=== PATIENT | female | born 1945 | race Caucasian/White ===

== ENCOUNTER → 2018-11-15 12:31 | Outpatient (CLI) | payer MEDICARE, OTHER, SELFPAY ==
--- NOTE | 2018-11-15 | DI.ECHO.S_ITS ---
[facility] +---------+ : : [address] : [address] [place] : : : : [id number] : : : : Phone: [phone]+ Echocardiogram Report + + :Name: RASHAD SPARKS Study Date: 11/15/2018 Height: 67 in : :[facility] Weight: 140 lb : : Gender: Female BSA: 1.7 m2 : :: 1945 Age: 72 yrs BP: 172/98 mmHg: :Reason For Study: Atrial fibrillation - paroxysmal : :Ordering Physician: Santino : :Char Castillo Performed By: Lizet Joseph : + + Interpretation Summary The left ventricle is normal in size. The ejection fraction is estimated to be 60-65%. There are no focal wall motion abnormalities. The right ventricle is normal in size and function. The right ventricular systolic pressure is estimated to be at least 34 mmHg based on an estimated right atrial pressure of 3 mm Hg. No significant valvular pathology No prior echo for comparison. Procedure: A two-dimensional transthoracic echocardiogram with color flow and Doppler was performed. The study quality was technically adequate. There is no prior echocardiogram noted for this patient. The patient was in sinus bradycardia with heart rates between 46-58 bpm during the exam. Left Ventricle: Left ventricular wall thickness is at the upper limits of normal. The left ventricle is normal in size. A false chord is noted (normal variant). The ejection fraction is estimated to be 60-65%. There are no focal wall motion abnormalities. Diastolic parameters suggest probable normal left ventricular diastolic function and normal filling pressures. Right Ventricle: The right ventricle is normal in size and function. TAPSE 3.3. Atria: The left atrial size is normal. The right atrium is borderline dilated. There is no Doppler evidence for an interatrial shunt. Mitral Valve: The mitral valve leaflets appear borderline thickened, but open well. There is mild mitral annular calcification. There is mild mitral regurgitation. Aortic Valve: The aortic valve is trileaflet. The aortic valve opens well. There is no aortic valve stenosis. There is trace aortic regurgitation. Tricuspid Valve: The tricuspid valve leaflets are thin and pliable. There is mild tricuspid regurgitation. The right ventricular systolic pressure is estimated to be at least 34 mmHg based on an estimated right atrial pressure of 3 mm Hg. Pulmonic Valve: The pulmonic valve is normal in structure and function. There is a trace or physiologic amount of pulmonic regurgitation. Great Vessels: The aortic root is normal size. The ascending aorta is mildly enlarged. The aortic arch is normal in size. The IVC is of normal diameter and collapses greater than 50% with a sniff. This suggests a low right atrial pressure of 3 mm Hg. Pericardium/ Pleura There is no pericardial effusion. MMode/2D Measurements & Calculations LVIDd: 4.5 cm LVOT diam: 1.8 cm LVIDs: 2.4 cm Ao root diam: 3.0 cm FS: 46.9 % Aortic Jxn: 2.5 cm EPSS: 0.30 cm asc Aorta Diam: 3.5 cm IVSd: 1.00 cm Ao Arch Diam (Prox Trans): 2.6 cm LVPWd: 1.0 cm LV kelley. diameter/BSA (cm/m^2): 2.6 LV sys. diameter/BSA (cm/m^2): 1.4 LA A2 area: 20.7 cm2 RA long axis: 5.2 cm LA A4 area: 23.4 cm2 RA area: 21.2 cm2 LA length (vol): 5.3 cm RA vol: 73.5 ml LA vol: 77.8 ml RA : 42.3 ml/m2 LA vol index: 44.8 ml/m2 IVC diam: 1.5 cm RVD1 (basal): 3.7 cm RVD2 (mid): 2.7 cm TAPSE: 3.3 cm Doppler Measurements & Calculations Ao V2 max: 143.3 cm/sec LVOT Max Max: 133.3 cm/sec Ao V2 mean: 81.2 cm/sec LV V1 max P.1 mmHg Ao max P.2 mmHg LV V1 VTI: 28.3 cm Ao mean P.3 mmHg NANCY(I,D): 2.6 cm2 Ao V2 VTI: 27.0 cm NANCY(V,D): 2.3 cm2 sev ratio: 1.0 NANCY indexed to BSA (cm^2/m^2): 1.5 MV E max max: 93.3 cm/sec TR max max: 277.5 cm/sec MV A max max: 56.3 cm/sec TR max P.8 mmHg MV E/A: 1.7 PA V2 max: 79.1 cm/sec Med Peak E' Amx: 7.5 cm/sec PA V2 mean: 52.6 cm/sec E/E' med: 12.5 PA mean P.3 mmHg Lat Peak E' Max: 7.4 cm/sec PA Accel Time: 0.15 sec E/E' lat: 12.7 E/e' average: 12.6 MV dec time: 0.14 sec MV P1/2t: 43.7 msec MV /2t max max: 94.0 cm/sec SV(LVOT): 70.7 ml MVA(P1/2t): 5.0 cm2 Electronically signed by: Santino Pardo M.D. on Reading Physician:11/15/2018 06:33 PM
== END ==
PROVIDERS: Visit Provider Hospitalist
DX: I08.1 Rheumatic disorders of both mitral and tricuspid valves (principal); I48.0 Paroxysmal atrial fibrillation
CPT/HCPCS: 93306

== ENCOUNTER 2023-04-23 21:36 | Emergency (ER) | payer MEDICARE, OTHER, SELFPAY ==
[2023-04-23 21:40] VITALS: BP 191/93; PULSE 60; RESP 18; TEMP 36.8; O2SAT 97; BMI 22.8
[2023-04-23 22:08] LABS: Add Manual Diff / Slide Review NO; Basophils Absolute Auto 100 /uL (0-100); Basophils Percent Auto 0.5 % (0-2); Eosinophils Absolute Auto 200 /uL (0-450); Eosinophils Percent Auto 1.6 % (2-4); Hematocrit 41.8 % (36-46); Hemoglobin 14.2 g/dL (12.0-16.0); Lymphocytes Absolute Auto 1600 /uL (1100-4500); Mean Corpuscular Hemoglobin 30.9 PG (26-34); Mean Corpuscular Volume 90.9 fL (80-100); Monocytes Absolute Auto 800 /uL (0-900); Monocytes Percent Auto 7.4 % (3-14); Neutrophils Absolute Auto 7600 /uL (1500-7000); Neutrophils Percent Auto 74.5 % (50-75); Platelet Count 189 X10^3/uL (150-400); Red Cell Distribution Width 13.6 % (11.6-14.8); White Blood Cell Count 10.2 X10^3/uL (4.5-11.0)
[2023-04-23 22:11] LABS: Alanine Aminotransferase 19 IU/L (<35); Albumin 4.5 g/dL (3.5-5.0); Albumin Globulin Ratio 1.4 (1.0-2.8); Alkaline Phosphatase 79 U/L (38-126); Aspartate Aminotransferase 27 IU/L (14-36); BUN Creatinine Ratio 24.1 (6-22); Bilirubin Total 0.4 mg/dL (0.2-1.3); Blood Urea Nitrogen 14 mg/dL (7-17); Calcium 9.6 mg/dL (8.4-10.2); Carbon Dioxide 30 mmol/L (22-32); Chloride 100 mmol/L (98-107); Estimated Glomerular Filt Rate > 60 mL/min (>60); Globulin 3.2 g/dL (1.7-4.1); Glucose 110 mg/dL (80-110); HEMOLYSIS < 15 (0-50); Lipase 107 U/L (23-300); Potassium 3.9 mmol/L (3.4-5.1); Sodium 138 mmol/L (137-145); Total Protein 7.7 g/dL (6.3-8.2)
[2023-04-23 22:48] VITALS: PULSE 60; RESP 20
[2023-04-23 22:49] VITALS: BP 172/84; PULSE 60; RESP 23; O2SAT 97
[2023-04-23 23:00] VITALS: BP 161/87; PULSE 60; O2SAT 98
--- NOTE | 2023-04-23 23:29 | DI.CT.S_ITS ---
PROCEDURE: CT ABDOMEN PELVIS W CON INDICATIONS: abd pain, bloody stool TECHNIQUE: After the administration of IV contrast, axial sections were acquired from the lung bases to the pubic symphysis. Coronal and sagittal reformats were performed. For radiation dose reduction, the following was used: automated exposure control, adjustment of mA and/or kV according to patient size. COMPARISON: None. FINDINGS: Image quality: Excellent. Lung bases: There is mild atelectasis and scarring in the lung bases. Heart: Heart size is enlarged. ABDOMEN: Liver: No mass lesion. Gallbladder: Within normal limits without calcified gallstones. Biliary ducts: No biliary ductal dilatation. Pancreas: Unremarkable. Spleen: Normal in size. Adrenal Glands: No adrenal nodules. Kidneys and Ureters: No hydronephrosis. Stomach and Bowel: Stomach and small bowel loops are normal in caliber and wall thickness. No evidence of appendicitis. There is diffuse diverticulosis throughout the colon with associated diverticular and segmental colonic wall thickening in the sigmoid colon as well as pericolonic fat stranding consistent with acute diverticulitis. No discrete diverticular abscess or macroscopic free air. Peritoneum: No abnormal intraperitoneal fluid. No free air. Ventral Wall: No hernia. Abdominal Nodes: No retroperitoneal or mesenteric adenopathy by size criteria. Vessels: Aorta and inferior vena cava are normal in size. PELVIS: Pelvic Organs: Unremarkable. Bladder: Unremarkable. Pelvic Nodes: No enlarged lymph nodes. Miscellaneous: No inguinal hernias are seen. Bones: Visualized osseous structures demonstrate no suspicious focal lesions. IMPRESSION: 1. Diverticular and segmental colonic wall thickening in the sigmoid colon with pericolonic fat stranding consistent with diverticulitis. No diverticular abscess or macroscopic free air. Given the degree of colonic wall thickening, recommend follow-up colonoscopy to exclude associated mass if clinically indicated. Dictated by: Valdo Gaspar M.D. on 04/24/2023 at 0:28 Approved by: Valdo Gaspar M.D. on 04/24/2023 at 0:33
[2023-04-23 23:30] VITALS: BP 167/90; PULSE 60; RESP 20; O2SAT 98
--- NOTE | 2023-04-23 23:49 | ED_ITS ---
HPI - Abdominal Pain General Chief Complaint: Abdominal Pain Stated Complaint: abd pain, bloody stool Time Seen by Provider: 04/23/23 23:29 Source: patient Mode of arrival: Ambulatory Limitations: no limitations History of Present Illness HPI narrative: This is a 77-year-old female on Eliquis for atrial arrhythmias including atrial fibrillation, prior ablation and pacemaker. Patient states she has had suprapubic pain, some bloody stools that have been bright red over the last several days. No fevers. Patient states no back or flank pain. No upper abdominal pain. Patient states she is been a little constipated she is been having some bowel movements but less recently. No dysuria, urgency or frequency. No vaginal bleeding or discharge. Patient states she would similar symptoms in the past was diagnosed with diverticulitis. She was on antibiotics and had improvement. She states she is had prior hysterectomy, pacemaker. Allergic to Demerol and morphine states makes her hallucinate and vomit. She states she is tolerated fentanyl in the past without issue for procedures. Patient no tobacco, alcohol or illicit. Related Data Previous Rx's Medication Instructions Recorded amoxicillin 875 mg-potassium 1 tab PO BID #20 tabs 04/24/23 clavulanate 125 mg tablet hydrocodone 5 mg-acetaminophen 325 1 tab PO Q6H PRN pain #10 tabs 04/24/23 mg tablet Allergies Allergy/AdvReac Type Severity Reaction Status Date / Time meperidine [From DEMEROL] Allergy Unknown Verified 04/24/23 01:24 morphine AdvReac Hallucinati Verified 04/23/23 21:45 ng Review of Systems Review of Systems ROS Unobtainable: All systems reviewed & are unremarkable except as noted in HPI and below Patient History Surgical History Status post hernia repair Status post hysterectomy Status post myomectomy Social History Smoking Status: Never smoker Smoking Status: Never smoker Substance Use Type: does not use Exam Narrative Exam Narrative: GENERAL: Alert and oriented x three, female in [id number] distress. HEENT: Head normocephalic, atraumatic, EOMI, pupils reactive, face symmetric, moist mucous membranes NECK: Supple, full range of motion CARDIOVASCULAR: Regular rate and rhythm without murmurs, rubs or gallops. RESPIRATORY: Breath sounds equal bilaterally, no wheezes rales or rhonchi. ABDOMEN: Soft, positive for suprapubic pain. Normoactive bowel sounds all 4 quadrants. No guarding or rebound, rigidity, no mass : No CVA tenderness EXTREMITIES: Normal range of motion, no clubbing or edema. Neurovascularly intact NEUROLOGICAL: Cranial nerves II through XII grossly intact. Moving all extremities SKIN: Warm, dry, no petechiae, no rashes or lesions. Initial Vital Signs Initial Vital Signs: Vital Signs Temperature 98.3 F 04/23/23 21:40 Pulse Rate 60 04/23/23 21:40 Respiratory Rate 18 04/23/23 21:40 Blood Pressure 191/93 H 04/23/23 21:40 Pulse Oximetry 97 04/23/23 21:40 Oxygen Delivery Method Room Air 04/23/23 21:40 Course Orders Ordered: ED Orders 04/23/23 21:46 EKG-12 Lead Stat 04/23/23 21:50 Complete Blood Count AUTO DIFF Stat Comprehensive Metabolic Panel Stat Lipase Stat 04/23/23 23:29 CT abdomen pelvis w con Stat Discontinued Medications Hydrocodone Bitart/Acetaminophen (Hydrocodone/Acet 5/325 Prepack) 1 bottle MISC SEEINSTR ONE Stop: 04/24/23 00:58 Last Admin: 04/24/23 01:25 Dose: 1 bottle Documented By: [email or web address] Amoxicillin/Clavulanate Potassium (Amoxicillin/Clav 875/125 Mg) 1 tab PO NOW ONE Stop: 04/24/23 00:57 Last Admin: 04/24/23 01:25 Dose: 1 tab Documented By: [email or web address] Fentanyl (Fentanyl 100 Mcg/2 Ml Inj) 25 mcg IV NOW ONE Stop: 04/24/23 00:35 Last Admin: 04/24/23 01:26 Dose: 25 mcg Documented By: [email or web address] Ondansetron HCl (Ondansetron 4 Mg/2 Ml Inj) 4 mg IV NOW PRN PRN Reason: Nausea And Vomiting Vital Signs Vital signs: Vital Signs - 8 hr 04/23/23 21:40 04/23/23 22:48 04/23/23 22:49 Temperature 98.3 F Pulse Rate 60 60 Respiratory Rate 18 20 Blood Pressure 191/93 H 172/84 H Pulse Oximetry 97 Oxygen Delivery Method Room Air 04/23/23 22:49 04/23/23 23:00 04/23/23 23:00 Temperature Pulse Rate 60 60 Respiratory Rate 23 Blood Pressure 161/87 H Pulse Oximetry 97 98 Oxygen Delivery Method Room Air Room Air 04/23/23 23:30 04/23/23 23:30 04/24/23 01:46 Temperature Pulse Rate 60 60 Respiratory Rate 20 18 Blood Pressure 167/90 H 164/85 H Pulse Oximetry 98 98 Oxygen Delivery Method Room Air Room Air MDM - Abdominal Pain Lab Data 04/23/23 21:50 04/23/23 21:50 Labs: Lab Results 04/23/23 04/23/23 Range/Units 21:50 21:50 WBC 10.2 (4.5-11.0) X10^3/uL RBC 4.60 (4.0-5.2) X10^6/uL Hgb 14.2 (12.0-16.0) g/dL Hct 41.8 (36-46) % MCV 90.9 (80-100) fL MCH 30.9 (26-34) PG MCHC 34.0 (30-36) % RDW 13.6 (11.6-14.8) % Plt Count 189 (150-400) X10^3/uL Neut % (Auto) 74.5 (50-75) % Lymph % (Auto) 16.0 L (25-40) % Burke % (Auto) 7.4 (3-14) % Eos % (Auto) 1.6 L (2-4) % Baso % (Auto) 0.5 (0-2) % Neut # (Auto) 7600 H (7829-7056) /uL Lymph # (Auto) 1600 (7379-2679) /uL Burke # (Auto) 800 (0-900) /uL Eos # (Auto) 200 (0-450) /uL Baso # (Auto) 100 (0-100) /uL Sodium 138 (137-145) mmol/L Potassium 3.9 (3.4-5.1) mmol/L Chloride 100 (98-107) mmol/L Carbon Dioxide 30 (22-32) mmol/L BUN 14 (7-17) mg/dL Creatinine 0.58 (0.52-1.04) mg/dL Estimated GFR > 60 (>60) mL/min BUN/Creatinine Ratio 24.1 H (6-22) Glucose 110 (80-110) mg/dL Calcium 9.6 (8.4-10.2) mg/dL Total Bilirubin 0.4 (0.2-1.3) mg/dL AST 27 (14-36) IU/L ALT 19 (<35) IU/L Alkaline Phosphatase 79 (38-126) U/L Total Protein 7.7 (6.3-8.2) g/dL Albumin 4.5 (3.5-5.0) g/dL Globulin 3.2 (1.7-4.1) g/dL Albumin/Globulin Ratio 1.4 (1.0-2.8) Lipase 107 (23-300) U/L Point of care testing: Urine Dip Bedside Urine Bilirubin - Negative Bedside Urine Ketone - Negative Urine Specific [place] 1.005 Bedside Urine Occult Blood - Negative Bedside Urine pH 6.0 Bedside Urine Protein - Negative Bedside Urine Urobilinogen +/- 1mg Bedside Urine Nitrite - Negative Bedside Urine Leukocytes - Negative Esterase Imaging Data CT scan - abdomen/pelvis: Radiologist's Impression: [place] [address] CT Scan Report Signed Patient: Fatmata Carranza MR#: [id number] : 1945 Acct:[id number] Age/Sex: 77 / F Date of Service: 04/23/23 Loc: Accession Number: [id number] ?? Procedure: CT abdomen pelvis w con Ordering Provider: Aziza Valenzuela D.O. PROCEDURE:? CT ABDOMEN PELVIS W CON ? INDICATIONS:? abd pain, bloody stool ? TECHNIQUE:? After the administration of IV contrast, axial sections were acquired from the lung bases to the pubic symphysis.? Coronal and sagittal reformats were performed.? For radiation dose reduction, the following was used:? automated exposure control, adjustment of mA and/or kV according to patient size. ? COMPARISON:? None. ? FINDINGS:? Image quality:? Excellent.? ? Lung bases:? There is mild atelectasis and scarring in the lung bases.? ? Heart:? Heart size is enlarged. ? ? ABDOMEN: Liver:? No mass lesion. Gallbladder:? Within normal limits without calcified gallstones.? ? Biliary ducts:? No biliary ductal dilatation.? ? Pancreas:? Unremarkable.? ? Spleen:? Normal in size.? ? Adrenal Glands:? No adrenal nodules.? ? Kidneys and Ureters:? No hydronephrosis.? ? ? Stomach and Bowel:? Stomach and small bowel loops are normal in caliber and wall thickness.? No evidence of appendicitis.? There is diffuse diverticulosis throughout the colon with associated diverticular and segmental colonic wall thickening in the sigmoid colon as well as pericolonic fat stranding consistent with acute diverticulitis. ? No discrete diverticular abscess or macroscopic free air. Peritoneum:? No abnormal intraperitoneal fluid.? No free air.? ? Ventral Wall: ? No hernia.? Abdominal Nodes:? No retroperitoneal or mesenteric adenopathy by size criteria.? Vessels:? Aorta and inferior vena cava are normal in size.? ? PELVIS: Pelvic Organs:? Unremarkable.? ? Bladder:? Unremarkable.? ? Pelvic Nodes: No enlarged lymph nodes.? Miscellaneous: No inguinal hernias are seen. ? ? ? Bones:? Visualized osseous structures demonstrate no suspicious focal lesions. ? IMPRESSION:? ? 1. Diverticular and segmental colonic wall thickening in the sigmoid colon with pericolonic fat stranding consistent with diverticulitis.? No diverticular abscess or macroscopic free air.? Given the degree of colonic wall thickening, recommend follow-up colonoscopy to exclude associated mass if clinically indicated. ? Dictated by: Valdo Gaspar M.D. on 04/24/2023 at 0:28 ? ? Approved by: Valdo Gaspar M.D. on 04/24/2023 at 0:33?? ECG Data Attestation: I personally reviewed and interpreted this ECG as follows: Interpretation: Ventricularly paced rhythm rate of 60, QRS of 122 QTC of 466. MDM Narrative Medical decision making narrative: This is a 77-year-old female on Xarelto for AFib, atrial tachycardia isn't pacemaker with prior history of diverticulitis having similar symptoms starting this morning. Suprapubic pain, no rectal pain. Patient has had some bloody output bright red small amounts. No lightheadedness or passing out, patient did take 1 of her 's 7.5 mg Kennedy which was helpful earlier today. This is about 9:00 p.m.. Patient labs including CBC, CMP, LFTs with no significant changes. Negative point of care urine. Patient's CT does show changes consistent with diverticulitis no perforation or abscess. Discussed with patient findings today, discussed follow up with primary care to discuss colonoscopy. Patient is reluctant based on her age and risks versus benefits. She is an appointment on Thursday or Thursday with his physician and states she will review this with them. Plan for Augmentin twice daily, management for pain control. Patient and I discussed stool softeners she has Zofran at home. We did discuss return precautions. All questions answered. Discharge Plan Departure Patient Disposition: Home Clinical Impression: Diverticulitis Instructions: DI for Diverticulitis Activity Restrictions/Additional Instructions: Follow-up with your physician at your scheduled appointment. You do have colonic wall thickening in the sigmoid colon there is no abscess or signs of perforation, there is quite a bit of thickening and it is recommended for follow-up colonoscopy. Take antibiotics until completely gone. Can take pain medication 1-2 tablets every 6 hours as needed for pain. This medication can make you sleepy do not drive, perform hazardous activities or make any major decisions while taking it. This medication will make you constipated please take a stool softener once to twice daily until stools are soft and regular. [facility] [place] Please return for fevers, new or worsening abdominal back or flank pain, vomiting, increasingly large amounts of bleeding, large clots, lightheadedness or passing out, chest pain or shortness of breath or other new or concerning changes. Prescriptions: New amoxicillin-pot clavulanate 875-125 mg tablet 1 tab PO BID Qty: 20 0RF hydrocodone-acetaminophen 5-325 mg tablet 1 tab PO Q6H PRN (Reason: pain) Qty: 10 0RF Referrals: Esther Coy ARNP [Primary Care Provider] - Stand Alone Forms: Patient Portal/API
[2023-04-24] MEDS: AMOXICILLIN/CLAV 875/125 MG 1 TAB PO (01:25)
[2023-04-24] MEDS: HYDROCODONE/ACET 5/325 PREPACK 1 BOTTLE MISC (01:25)
[2023-04-24] MEDS: fentaNYL 100 MCG/2 ML INJ 25 MCG IV (01:26)
[2023-04-24 01:46] VITALS: BP 164/85; PULSE 60; RESP 18; O2SAT 98
== END 2023-04-24 01:52 | disposition home or self-care (01) ==
PROVIDERS: Emergency Provider Emergency Medicine; PCP Nurse Practitioner Family
DX: K57.92 Diverticulitis of intestine, part unspecified, without perforation or abscess without bleeding (principal); R10.9 Unspecified abdominal pain; I48.91 Unspecified atrial fibrillation; Z79.01 Long term (current) use of anticoagulants; Z95.0 Presence of cardiac pacemaker
CPT/HCPCS: 36415; 74177; 80053; 81003; 83690; 85025; 93005; 93010; 96374; 99284; J3010; Q9967

== ENCOUNTER 2023-10-05 17:01 | Emergency (ER) | payer MEDICARE, OTHER, SELFPAY ==
[2023-10-05 17:17] VITALS: BP 206/97; PULSE 69; RESP 17; TEMP 37.4; O2SAT 99; BMI 22.4
--- NOTE | 2023-10-05 17:34 | ED.ABDPAIN ---
HPI - Abdominal Pain <Qasim Payne PA-C - Last Filed: 10/05/23 17:59> General Chief Complaint: Abdominal Pain Stated Complaint: ABD PAIN/lower abd area Time Seen by Provider: 10/05/23 17:22 Source: patient and family Mode of arrival: Ambulatory History of Present Illness HPI narrative: This is a 77-year-old female presents emergency department due to lower abdominal pain onset this morning. Denies any fevers, nausea, vomiting, dysuria, or any other concerning signs or symptoms. History of diverticulitis twice in the past and this feels very similar. Related Data Home Medications Medication Instructions Recorded Confirmed amlodipine 5 mg tablet 5 mg PO DAILY 10/05/23 10/05/23 rivaroxaban 2.5 mg tablet (Xarelto) 5 mg PO DAILY 10/05/23 10/05/23 Previous Rx's Medication Instructions Recorded oxycodone-acetaminophen 5 mg-325 1 tab PO Q8H PRN pain #14 tabs 10/05/23 mg tablet Allergies Allergy/AdvReac Type Severity Reaction Status Date / Time meperidine [From DEMEROL] Allergy Unknown Verified 10/05/23 17:22 morphine AdvReac Hallucinati Verified 10/05/23 17:22 ng Review of Systems <SHAMA Tobar Last Filed: 10/05/23 17:59> Review of Systems Narrative: GENERAL: Denies chills, fatigue, malaise, fever, sweats. HEENT: Denies sinus pain, ear pain, sore throat, difficulty swallowing, dizziness. RESPIRATORY: Denies dyspnea, cough, wheezing, hemoptysis, sputum. CARDIOVASCULAR: Denies chest pain, palpitations, orthopnea, edema, GASTROINTESTINAL: reports lower abdominal pain, Denies nausea, vomiting, diarrhea, constipation, melena. : Denies dysuria, frequency, incontinence, hematuria, urinary retention. MUSCULOSKELETAL: denies weakness, joint pain, or bony pain SKIN: Denies rash, skin lesions, or other NEUROLOGIC: Denies weakness, headache, numbness, change in speech, confusion, seizures, incoordination. PSYCHIATRIC: No concerning psychosocial issues. 12 point review of systems is negative except for those stated above Patient History <Qasim Payne PA-C - Last Filed: 10/05/23 17:59> Surgical History Status post hernia repair Status post hysterectomy Status post myomectomy Social History Smoking Status: Never smoker Smoking Status: Never smoker Substance Use Type: does not use Exam <Qasim Payne PA-C - Last Filed: 10/05/23 17:59> Narrative Exam Narrative: GENERAL: Well-developed patient, in mild distress. HEAD: Atraumatic. Normocephalic. EYES: Pupils equal round and reactive. Extraocular motions intact. No scleral icterus. No injection or drainage. ENT: Nose without bleeding, purulent drainage. Throat without erythema, tonsillar hypertrophy or exudate. Airway patent. NECK: Trachea midline. Non tender CARDIOVASCULAR: Regular rate and rhythm without murmurs, gallops, or rubs. RESPIRATORY: Clear to auscultation. Breath sounds equal bilaterally. No wheezes, rales, or rhonchi. GASTROINTESTINAL: Mild tenderness to palpation suprapubic area EXTREMITIES: No edema or joint tenderness. BACK: Nontender without deformity or crepitance. No flank tenderness. NEURO: AOx3. SKIN: No rash or erythema of visible areas Initial Vital Signs Initial Vital Signs: Vital Signs Temperature 99.4 F 10/05/23 17:17 Pulse Rate 69 10/05/23 17:17 Respiratory Rate 17 10/05/23 17:17 Blood Pressure 206/97 H 10/05/23 17:17 Pulse Oximetry 99 10/05/23 17:17 Oxygen Delivery Method Room Air 10/05/23 17:17 <Konstantin Villanueva MD - Last Filed: 10/19/23 12:57> Initial Vital Signs Initial Vital Signs: Vital Signs Temperature 99.4 F 10/05/23 17:17 Pulse Rate 69 10/05/23 17:17 Respiratory Rate 17 10/05/23 17:17 Blood Pressure 206/97 H 10/05/23 17:17 Pulse Oximetry 99 10/05/23 17:17 Oxygen Delivery Method Room Air 10/05/23 17:17 Course <Qasim Payne PA-C - Last Filed: 10/05/23 17:59> Vital Signs Vital signs: Vital Signs - 8 hr 10/05/23 17:17 10/05/23 17:38 Temperature 99.4 F Pulse Rate 69 60 Respiratory Rate 17 18 Blood Pressure 206/97 H 152/72 H Pulse Oximetry 99 98 Oxygen Delivery Method Room Air Room Air <Konstantin Villanueva MD - Last Filed: 10/19/23 12:57> Vital Signs Vital signs: Vital Signs - 8 hr 10/05/23 17:17 10/05/23 17:38 Temperature 99.4 F Pulse Rate 69 60 Respiratory Rate 17 18 Blood Pressure 206/97 H 152/72 H Pulse Oximetry 99 98 Oxygen Delivery Method Room Air Room Air MDM - Abdominal Pain <Qasim Payne PA-C - Last Filed: 10/05/23 17:59> MDM Narrative Medical decision making narrative: MDM * differential diagnosis includes but not limited to appendicitis, diverticulitis, UTI * Prior records reviewed: Patient was seen here 5 months ago due to diverticulitis. History of Eliquis for atrial arrhythmias including AFib prior ablation and pacemaker. Patient was seen for bloody stools bright red blood as well as lower abdominal pain. Allergic to Demerol and morphine makes her hallucinate vomit. Tolerated fentanyl in the past. History of hernia repair, hysterectomy, myomectomy. CT scan ordered which was consistent with diverticulitis. Patient was discharged with Augmentin b.i.d. as well as [place]. * My lab interpretation: None obtained * My imgaing interpretation: None obtained * Clinical Decision Rules/Scores evaluated: None * Independent discussions with: None ED Course: This is a 77-year-old female presents emergency department complaining of diverticulitis like pain which is very similar to previous episodes she is had. Shared decision-making utilized and no lab work or imaging ordered. We will prescribed with oral antibiotics and medications for pain control. Recommended she follow up with the primary care provider for long-term management. Shared Decision Making: Discussed plan with patient who is comfortable with the plan Social Considerations: None Disposition: Discharged to home Discharge Plan Departure Patient Disposition: Home Clinical Impression: Diverticulitis Instructions: Diverticulitis Activity Restrictions/Additional Instructions: Thank you for coming to the [facility] Emergency Department today. As we discussed this episode seems very similar to prior diverticulitis episodes you have had had in the past. Please take the oral antibiotics as prescribed. I recommend ibuprofen as needed for pain but you may use the narcotics provided for breakthrough pain. I hope you feel better soon. Please follow up with your primary care provider within a week if your symptoms continue. If you do not have a primary care provider please contact the [facility] Resource line at [phone]. They will ask some questions about your medical history and help you get set up with a provider in the community. Prescriptions: New oxycodone-acetaminophen 5-325 mg tablet 1 tab PO Q8H PRN (Reason: pain) Qty: 14 0RF No Action amlodipine 5 mg tablet 5 mg PO DAILY Xarelto 2.5 mg Tablet 5 mg PO DAILY Referrals: Esther Coy ARNP [Primary Care Provider] - Stand Alone Forms: Patient Portal/API ED Sign-out <Konstantin Villanueva MD - Last Filed: 10/19/23 12:57> [facility] Attestation: I was immediately available in the department for consultation. This documentation has been reviewed and I agree with assessment and plan. Supervised by Konstantin Villanueva MD
[2023-10-05 17:38] VITALS: BP 152/72; PULSE 60; RESP 18; O2SAT 98
== END 2023-10-05 18:02 | disposition home or self-care (01) ==
PROVIDERS: Emergency Provider Physician Assistant Medical; PCP Nurse Practitioner Family
DX: K57.92 Diverticulitis of intestine, part unspecified, without perforation or abscess without bleeding (principal)
CPT/HCPCS: 99281; 99282

== ENCOUNTER 2025-10-01 07:48 | Emergency (ER) | payer MEDICARE, OTHER, SELFPAY ==
[2025-10-01 07:55] VITALS: BP 179/94; PULSE 62; RESP 18; O2SAT 98; BMI 22.1
--- NOTE | 2025-10-01 08:11 | EKG_ITS ---
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
--- NOTE | 2025-10-01 08:11 | DI.RAD.S_ITS ---
PROCEDURE: XR CHEST 2V INDICATIONS: short of breath cough TECHNIQUE: 2 views of the chest were acquired. COMPARISON: None. FINDINGS: Surgical changes and devices: Left chest wall cardiac device with leads in the right atrium, right ventricle, and coronary sinus.. Lungs and pleura: Hyperexpanded lung volumes with flattening the diaphragms Lungs are clear. No pleural effusions or pneumothorax. Mediastinum: Mediastinal contours are normal. Heart size is enlarged. Bones and chest wall: No suspicious bony abnormalities. Soft tissues appear unremarkable. Exaggerated kyphosis of the thoracic spine. IMPRESSION: No acute cardiopulmonary abnormality is seen. Dictated by: Konstantin Rose M.D. on 10/01/2025 at 8:13 Approved by: Konstantin Rose M.D. on 10/01/2025 at 8:14
--- NOTE | 2025-10-01 08:13 | ED.ANXIETY ---
HPI - Anxiety General Chief Complaint: Anxiety Stated Complaint: Insomnia/anxiety/intrusive thoughts/Clonazepam Time Seen by Provider: 10/01/25 08:11 Source: patient Mode of arrival: Family Vehicle History of Present Illness HPI narrative: Patient is a 79-year-old female history of atrial fibrillation with pacemaker on Xarelto ongoing anxiety presenting today with insomnia and anxiety. She reports that she does not have a problem getting to sleep however she can not stay asleep and when she wakes up she wakes up in a panic. This has been ongoing for months. She has kept her record she has clonazepam 0.5 mg to take as needed 4 times a day. She is taking at least 4 to 6 tablets a day. She will wake up panicked take a tablet and an hour later take another 1 she never really gets back to sleep it is only lasting for 1-2 hours. She ultimately would like to get off of this medication but knows that she is to taper off. She has had trouble with antianxiety medications in the past can not take SSRIs had reaction to Wellbutrin. She has an appointment with her primary care provider but not until November 06. She has no thoughts of harming herself or others but is afraid to go to sleep at night with a fear of what is when happened when she wakes up. She also has been having a cough and shortness of breath for about a week and intermittent chest pain. No significant fever or chills. Related Data Home Medications ?Medication ?Instructions ?Recorded ?Confirmed amlodipine 5 mg tablet 5 mg PO DAILY 10/05/23 02/28/24 rivaroxaban 2.5 mg tablet (Xarelto) 5 mg PO DAILY 10/05/23 02/28/24 Previous Rx's ?Medication ?Instructions ?Recorded oxycodone-acetaminophen 5 mg-325 1 tab PO Q8H PRN pain #14 tabs 10/05/23 mg tablet Allergies Allergy/AdvReac Type Severity Reaction Status Date / Time meperidine (From DEMEROL) Allergy Unknown Verified 10/01/25 07:56 morphine AdvReac Hallucinati Verified 10/01/25 07:56 ng Patient History Surgical History Status post myomectomy Status post hernia repair Status post hysterectomy Social History Smoking Status: Never smoker Smoking Status: Never smoker Exam Initial Vital Signs Initial Vital Signs: Vital Signs Pulse Rate 62 10/01/25 07:55 Respiratory Rate 18 10/01/25 07:55 Blood Pressure 179/94 H 10/01/25 07:55 Pulse Oximetry 98 10/01/25 07:55 Oxygen Delivery Method Room Air 10/01/25 07:55 GENERAL: Alert pleasant 71-year-old female and in no acute distress. HEENT: Head atraumatic,EOMI, pupils reactive, face symmetric, moist mucous membranes CARDIOVASCULAR: Regular rate and rhythm without murmurs, rubs or gallops. RESPIRATORY: Breath sounds equal bilaterally, no wheezes rales or rhonchi. ABDOMEN: Soft, nontender. Normoactive bowel sounds all 4 quadrants. No guarding or rebound. EXTREMITIES: Normal range of motion, no clubbing or edema. Neurovascularly intact NEUROLOGICAL: Alert and oriented x4.Normal gait and speech. Cranial nerves II through XII grossly intact. SKIN: Warm, dry, no laceration, no petechiae, no rashes or lesions. Course Orders Ordered: ED Orders 10/01/25 08:11 Chest [XR chest 2V] Stat EKG-12 Lead Stat Discontinued Medications Lorazepam (Lorazepam 0.5 Mg Tablet) 1 mg PO NOW ONE Stop: 10/01/25 08:12 Last Admin: 10/01/25 08:17 Dose: 1 mg Documented By: SBF Vital Signs Vital signs: Vital Signs - 8 hr 10/01/25 07:55 10/01/25 09:03 Temperature 98.4 F Pulse Rate 62 Respiratory Rate 18 Blood Pressure 179/94 H Pulse Oximetry 98 Oxygen Delivery Method Room Air MDM - Anxiety Imaging Data Chest x-ray: Radiologist's Impression: PROCEDURE: XR CHEST 2V INDICATIONS: short of breath cough TECHNIQUE: 2 views of the chest were acquired. COMPARISON: None. FINDINGS: Surgical changes and devices: Left chest wall cardiac device with leads in the right atrium, right ventricle, and coronary sinus.. Lungs and pleura: Hyperexpanded lung volumes with flattening the diaphragms Lungs are clear. No pleural effusions or pneumothorax. Mediastinum: Mediastinal contours are normal. Heart size is enlarged. Bones and chest wall: No suspicious bony abnormalities. Soft tissues appear unremarkable. Exaggerated kyphosis of the thoracic spine. IMPRESSION: No acute cardiopulmonary abnormality is seen. Dictated by: Konstantin Rose M.D. on 10/01/2025 at 8:13 ECG Data Attestation: I personally reviewed and interpreted this ECG as follows: Interpretation: Paced rhythm no ischemia similar to prior MDM Narrative Medical decision making narrative: Patient is a 79-year-old female presenting today with ongoing insomnia. She can fall asleep she can not stay asleep she wakes up in a panic. He has been recording all the clonazepam that she has been taking sometimes it is 0.5 mg which is her dose sometimes it is half or a quarter of a tablet but she takes it every 2 hours throughout the night and in his no longer working. He does not have a doctor's appointment until November 06. He is feeling significantly better after Ativan At this time I would recommend that she increase her clonazepam to 1 full mg it is clear that she has tolerance. She will need to discuss with her doctor up with a long-term plan. Both she and her understand this and agree. Other options may include trazodone but I am not sure what she has tried in the past. He was feeling somewhat short of breath and having some chest pain x-ray does not show any evidence of pneumonia EKGs shows a paced rhythm she is overall feeling better Discussed plan with patient and has been has been is understanding and they will follow up with primary care. It does appear that she was given lorazepam 1 mg on September 21 she has also had multiple refills of the clonazepam she was tried on fluoxetine and citalopram as well patient states that she is not tolerating these medications and they are making her more anxious. Discharge Plan Departure Patient Disposition: Home Clinical Impression: Acute anxiety Instructions: DI for Insomnia Activity Restrictions/Additional Instructions: *You have been diagnosed with insomnia *What to do: At this time I recommend increasing your clonazepam. You in your doctor will half to come up with a plan and change of medications and taper off the clonazepam and inappropriate fashion however at this time let us increase it to see if you have more of a result. Consider trazodone at night please talk to your primary care doctor about this *Continue to take medications as directed Clonazepam 1 mg every 3 hours if needed for anxiety OR take lorazepam 1 mg every 3-4 hours if needed for anxiety *Follow up with your primary care provider in 2-3 days or call [phone] *Return to ER if you should have increasing anxiety insomnia thoughts of harming self or any new, worsening or concerning symptoms Prescriptions: No Action amlodipine 5 mg tablet 5 mg PO DAILY Xarelto 2.5 mg Tablet 5 mg PO DAILY oxycodone-acetaminophen 5-325 mg tablet 1 tab PO Q8H PRN (Reason: pain) Qty: 14 0RF Referrals: Esther Coy ARNP [Primary Care Provider, Nursing] Stand Alone Forms: Patient Portal/API
[2025-10-01 09:03] VITALS: TEMP 36.9
== END 2025-10-01 09:45 | disposition home or self-care (01) ==
PROVIDERS: Emergency Provider Emergency Medicine; PCP Nurse Practitioner Family
DX: F41.9 Anxiety disorder, unspecified (principal); Z95.0 Presence of cardiac pacemaker; Z79.01 Long term (current) use of anticoagulants
CPT/HCPCS: 71046; 93005; 99283; 99284

== ENCOUNTER 2025-10-19 12:14 | Emergency (ER) | payer MEDICARE, OTHER, SELFPAY ==
[2025-10-19 12:22] VITALS: BP 179/85; PULSE 60; RESP 18; TEMP 36.9; O2SAT 98; BMI 21.4
--- NOTE | 2025-10-19 14:53 | ED.ALLEREA ---
HPI - Allergic Reaction General Chief complaint: Allergic Reaction Stated complaint: Medication Reaction- Strange dreams Time Seen by Provider: 10/19/25 12:40 Source: patient Mode of arrival: Wheelchair History of Present Illness HPI narrative: Fatmata Carranza is a pleasant 79-year-old female with a past medical history of AFib on Xarelto, pacemaker, venous insufficiency who presents to the emergency department via EMS from home for concern of new medications. Patient has been on lorazepam multiple times a day for at least the last 5 months. She just saw a new primary care doctor and they are trying to taper her off lorazepam so they discontinued this medication and started her on clonazepam 0.5 mg in addition to mirtazapine at night. Patient uses benzodiazepines to help her sleep and also for anxiety. Last night was her 1st night not using lorazepam, she took mirtazapine instead. She slept for about 6 hours however she had horrible nightmares. She woke up this morning was extremely anxious and took 0.5 mg of clonazepam. She was feeling slightly better so her left home and when he came home he found her lying on the ground. The patient was extremely anxious and said that she needed to lay on the ground because she did not feel right. She is now feeling shaky and experiencing what she believes is withdrawals from her clonazepam however the prescription was sent to the wrong pharmacy so she has been unable to pick it up, she is out of clonazepam, and she is primarily in the emergency department for this medication until can be picked up at the pharmacy. She denies chest pain, shortness of breath, head trauma, LOC, vomiting, diarrhea or other concerns. Her is here with her. Related Data Home Medications ?Medication ?Instructions ?Recorded ?Confirmed amlodipine 5 mg tablet 5 mg PO DAILY 10/05/23 02/28/24 rivaroxaban 2.5 mg tablet (Xarelto) 5 mg PO DAILY 10/05/23 02/28/24 Previous Rx's ?Medication ?Instructions ?Recorded oxycodone-acetaminophen 5 mg-325 1 tab PO Q8H PRN pain #14 tabs 10/05/23 mg tablet clonazepam 0.5 mg tablet 0.5 mg PO TID #12 tabs 10/19/25 Allergies Allergy/AdvReac Type Severity Reaction Status Date / Time meperidine (From DEMEROL) Allergy Unknown Verified 10/19/25 12:29 morphine AdvReac Hallucinati Verified 10/19/25 12:29 ng Review of Systems Review of Systems ROS Unobtainable: All systems reviewed & are unremarkable except as noted in HPI and below Patient History Surgical History Status post myomectomy Status post hernia repair Status post hysterectomy Exam Narrative Exam Narrative: GENERAL: 79 year old patient appears stated age. Well-developed patient, anxious. HEAD: Atraumatic. Normocephalic. EYES: PERRL. Extraocular motions intact. No scleral icterus. No injection or drainage. ENT: Nose without bleeding, purulent drainage. Throat without erythema, tonsillar hypertrophy or exudate. Airway patent. NECK: Trachea midline. Cervical ROM intact. CARDIOVASCULAR: Regular rate and rhythm. RESPIRATORY: ?Nonlabored respirations. ?Speaking in clear, full sentences. ?Clear to auscultation. Breath sounds equal bilaterally. No wheezes, rales, or rhonchi. ? EXTREMITIES: Faint tremor BL hands, easily overcome. Sensation intact to light touch in bilateral upper and lower extremities. NEURO: AOx3. ?Clear speech. ?Moves all 4 extremities appropriately. SKIN: No rash or erythema of visible areas Initial Vital Signs Initial Vital Signs: Vital Signs Temperature 98.5 F 10/19/25 12:22 Pulse Rate 60 10/19/25 12:22 Respiratory Rate 18 10/19/25 12:22 Blood Pressure 179/85 H 10/19/25 12:22 Pulse Oximetry 98 10/19/25 12:22 Oxygen Delivery Method Room Air 10/19/25 12:22 Course Orders Ordered: Discontinued Medications Clonazepam (Clonazepam 0.5 Mg Tablet) 0.5 mg PO NOW ONE Stop: 10/19/25 14:38 Last Admin: 10/19/25 14:43 Dose: 0.5 mg Documented By: DIGNA Clonazepam (Clonazepam 0.5 Mg Tablet) 0.5 mg PO NOW ONE Stop: 10/19/25 15:50 Last Admin: 10/19/25 15:55 Dose: 0.5 mg Documented By: DIGNA Vital Signs Vital signs: Vital Signs - 8 hr 10/19/25 12:22 10/19/25 16:01 Temperature 98.5 F Pulse Rate 60 60 Respiratory Rate 18 18 Blood Pressure 179/85 H 157/79 H Pulse Oximetry 98 98 Oxygen Delivery Method Room Air Room Air MDM - Allergic Reaction Medical Records Attestation: I reviewed the patient's medical records. Lab Data Labs: Urine Dip Bedside Urine Glucose Negative Bedside Urine Bilirubin - Negative Bedside Urine Ketone - Negative Urine Specific [place] 1.005 Bedside Urine Occult Blood - Negative Bedside Urine pH 7.5 Bedside Urine Protein - Negative Bedside Urine Urobilinogen - Negative Bedside Urine Nitrite - Negative Bedside Urine Leukocytes - Negative Esterase MDM Narrative Medical decision making narrative: 79-year-old female with a past medical history of AFib on Xarelto, pacemaker, venous insufficiency who presents to the emergency department via EMS from home for concern of new medications. Differential diagnosis includes but is not limited to medication reaction, benzodiazepine withdrawal, etc. On exam patient is in no acute distress, nontoxic appearing, vital signs appropriate. She is extremely anxious and is requesting clonazepam. Last night was her 1st attempt stopping lorazepam and instead using new medications however did not go well. She does have a prescription for clonazepam that was sent to her pharmacy however there was issue, it was sent to the wrong pharmacy, she could not pick it up therefore she is out of clonazepam. She is primarily here today for an emergency dose of clonazepam until her prescription and get to the pharmacy. She was treated with clonazepam here in the emergency department and felt much better and was ready to go home. I did send a few emergency doses to her pharmacy as well however her prescription from her PCP should be getting directed to her appropriate pharmacy soon as well. Discussed strict ER return precautions and prompt PCP follow up. Patient and her verbalized understanding of all information agreeable with the plan. She is stable for discharge home, eagerly requesting discharge home. Discharge Plan Departure Patient Disposition: Home Clinical Impression: Benzodiazepine dependence Medication adverse effect Qualifiers: Encounter type: initial encounter Qualified Code(s): T50.905A - Adverse effect of unspecified drugs, medicaments and biological substances, initial encounter Instructions: Clonazepam Activity Restrictions/Additional Instructions: Dear Ms. Carranza, Thank you for coming to the emergency department. I am sorry that you are having a difficult time with your new medications. As we discussed I have sent you a short course of your clonazepam to the pharmacy, [facility] in [place]. Please schedule an appointment with your primary care doctor as soon as possible for further evaluation and management of your new medication regimen. Please return to the emergency department if you have any concerns. Please follow up with your primary care doctor within the next 2-3 days for ER follow-up. (If you do not have a PCP you can call [phone]. ?to schedule an appointment with an [facility] Primary Care Provider) IF YOU DEVELOP ANY NEW OR WORSENING SYMPTOMS, RETURN TO THE ER! Please read the attached instructions, they highlight more specific treatments and interventions for you at home. Thank you for letting me participate in your care, Faye Padilla PA-C Prescriptions: New clonazepam 0.5 mg tablet 0.5 mg PO TID Qty: 12 0RF No Action amlodipine 5 mg tablet 5 mg PO DAILY Xarelto 2.5 mg Tablet 5 mg PO DAILY oxycodone-acetaminophen 5-325 mg tablet 1 tab PO Q8H PRN (Reason: pain) Qty: 14 0RF Referrals: Steff Dove PA-C [Primary Care Provider, Medical] Stand Alone Forms: Patient Portal/API
[2025-10-19 16:01] VITALS: BP 157/79; PULSE 60; RESP 18; O2SAT 98
== END 2025-10-19 16:04 | disposition home or self-care (01) ==
PROVIDERS: Emergency Provider Physician Assistant; PCP Physician Assistant
DX: F13.20 Sedative, hypnotic or anxiolytic dependence, uncomplicated (principal); F41.9 Anxiety disorder, unspecified; T50.905A Adverse effect of unspecified drugs, medicaments and biological substances, initial encounter
CPT/HCPCS: 81003; 99283

== ENCOUNTER 2025-11-01 14:45 | Emergency (ER) | payer MEDICARE, OTHER, SELFPAY ==
--- OUTSIDE RECORDS SUMMARY | 2025-10-29 17:46 | XMS_ITS | Continuity of Care Document ---
Author Organization [facility] [address] Phone Care Team Providers Care Market Consultant Name Role Phone Codi Membreno PA-C Primary Care Provider DOC, EMS Attending Provider DOC, EMS Referring Provider [phone] Flaco Denson MD Referring Provider Flaco Denson MD Emergency Provider Nathaly Banks Admit Provider [phone] Nathaly Banks Attending Provider [phone] Care Teams Patient Care Team Team Status: Active Member Role/Relationship Status Dates Codi Membreno PA-C Primary Care Provider Active Visit Care Team Team Status: Inactive Member Role/Relationship Status Dates Codi Membreno PA-C Primary Care Provider Active Start: October 19, 2025 End: October 19, 2025 EMS DOC Attending Provider Active Start: 2024 End: October 19, 2025 EMS DOC Referring Provider Active Start: 2024 End: October 19, 2025 Patient Care Team Team Status: Inactive Member Role/Relationship Status Dates Codi Membreno PA-C Primary Care Provider Active Start: October 27, 2025 End: October 27, 2025 EMS DOC Attending Provider Active Start: 2024 End: October 27, 2025 EMS DOC Referring Provider Active Start: 2024 End: October 27, 2025 Visit Care Team Team Status: Inactive Member Role/Relationship Status Dates Codi Membreno PA-C Primary Care Provider Active Start: October 28, 2025 End: October 29, 2025 Flaco Denson MD Referring Provider Active Start: October 28, 2025 End: October 29, 2025 Flaco Denson MD Emergency Provider Active Start: October 28, 2025 End: October 29, 2025 ABELINO De Luna Admit Provider Active Start: Oct End: October 29, 2025 ABELINO De Luna Attending Provider Active Start: October 28, 2025 End: October 29, 2025 Chief Complaint and Reason for Visit Chief Complaint Admit Date REACTION TO MED October 19, 2025 1 1:33am DIZZINESS October 27, 2025 6:03pm AMS October 28, 2025 5:28pm Reason for Visit Admit Date Closed compression fracture of L3 verteb ra October 28, 2025 5:28pm Atrial fibrillation October 28, 2025 5:28pm Altered mental status October 28 5:28pm Polypharmacy October 28, 2025 5:28pm Health Concerns Concerns Start Date We are getting you outpatien t follow-up in the community. We will get you in to see ABELINO Membreno at [facility] as soon as possible. We have made the transitions of care nurse at [facility] aware of you. We have also asked for expedited referral into our psychiatric nurse practitioner program. Social work is sending messages to the clinic, and a copy of my summary of this hospitalization will be sent to the clinic. There are many different medications that can be used for anxiety. Seeing an expert in mental health is the best idea. I do not believe that your primary problem is a benzodiazepine addiction. I think that you have uncontrollable anxiety that has led you to try to control it with benzodiazepines. I would like to wean you off of these meds and get you on something you can take every day that will help you. I feel that you need expert consultation, and our social workers are trying to get you access to the care that you need. The recommendation is not to combine narcotics (hydrocodone AKA [place]) with medications like librium. The two medications make each other stronger. THE GOAL IS TO CONTROL YOUR ANXIETY I want you to try Amitriptyline for anxiety. Although you take it once a day, it works throughout the day. The general framework for the amitriptylline is that you can increase the dose by 25 mg every 3rd night, up to a maximum of 150mg at bedtime. This is not a medication that you should stop abruptly. If you decide not to take it, you should decrease the dose at the exact same rate that you increased it. Below I have listed a schedule for you to try the medication, and when to increase the dose. Amitriptylline: Oct 29 and 15 50mg at bedtime. Dec 16 and 17- 75mg at bedtime. Oct 18 and - 100mg at bedtime. Dec 20 and - 125 mg at bedtime. Dec and - 150mg at bedtime. DO NOT increase above 150mg at bedtime. Daytime dose of this medication can be added, but once again, I would like you to see someone in the outpatient environment before changing this plan. Librium: This is a long acting benzodiazepine. You need to take this exactly as this schedule is written. it is not an option for you to take more than what is prescribed. I am starting you out on a relatively strong dose, compared to what you have had here. I am taking into account the lorazepam you have also had while admitted here. Last dose of the day, always at bedtime. Dec 14, 15, 16, 17, 18, 19: 25mg four times a day Dec 20, 21,22, 23, 24: 25mg three times a day. Dec 25,26,27,28 : 25mg two times a day. Nov 13,, , Nov 16: 25mg at bedtime. I have enjoyed trying to help you through this challenging time and I wish you all the best. Allergies, Adverse Reactions, Alerts Allergen Type Severity Reaction Last Updated Verified Status adhesive tape Adverse Reaction Unknown Unknown Decem wade 2024 6:41pm Yes Active bacitracin Adverse Reaction Unknown Rash October 27, 2025 6:41pm Yes Active meperidine HCl * Adverse Reaction Unknown Emesis De cember 2024 6:41pm Yes Active morphine Adverse Reaction Unknown Anxiety October 27, 2025 6:41pm Yes Active neomycin Adverse Reaction Unknown Rash October 27, 2025 6:41pm Yes Active polymyxin B Adverse Reaction Unknown Rash Decembe r 2024 6:41pm Yes Active Social History Smoking Status Status Start Date End Date Date of Observa tion Never smoked tobacco (finding) October 27, 2025 10:25pm Observation Status Observation Response Date of Response Suicide Risk Category Screening complete Decembe r 2024 6:34pm Psychiatric Depression May 27, 2020 3:27pm Anxiety May 27, 2020 3:27pm Legal Sex Female Sex Assigned At Female [id number] Status Not October 27, 2025 Family History Relationship Condition Age at Onset Recorded Date/T diana Unknown Neurological History?None Unknown Ju ly 2019 3:27pm Endocrine/Autoimmune?None, Other Unknown May 27, 2020 3:27pm Problems Active Problems Problem Diagnosis/Recorded Date Onset Date Stat us Closed compression fracture of L3 vertebra October 27, 2025 8:47pm Unknown Active Palpitations February 07, 2015 11:33pm Unknown Act justin URI (upper respiratory infection) January 05, 2016 2:20pm Unknown Active Anxiety January 05, 2016 2:20pm Unknown A ctive Atrial fibrillation October 27, 2025 10:21pm Unknow n Active Acute diverticulitis May 27, 2020 3:10pm Unknown Active Gastroenteritis January 12, 2017 8:21pm Unknown Active PAC (premature atrial contraction) February 07, 2015 11 :33pm Unknown Active History of radiofrequency ab lation procedure for cardiac arrhythmia May 27, 2020 1:53pm Unknown Acti ve Abdominal pain May 27, 2020 1:52pm Unknown Act justin Inactive/Resolved Problems Problem Diagnosis/Recorded Date Onset Date Stat us 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 October 28, 2025 3:14am Unknown Resolved History of lumpectomy October 28, 2025 3:13am Unkno wn Resolved History of inguinal hernia repair October 28, 2025 3:10am Unknown Resolved Thyroid nodule October 28, 2025 3:14am Unknown Resolved Depression October 28, 2025 3:14am Unknown R esolved Migraines October 28, 2025 3:16am Unknown R esolved Hyperlipidemia October 28, 2025 3:15am Unknown Resolved Melanoma October 28, 2025 3:13am Unknown R esolved Osteoarthritis October 28, 2025 3:14am Unknown Resolved Osteopenia October 28, 2025 3:16am Unknown R esolved Polypharmacy October 27, 2025 8:47pm Unknown R esolved Lumbar compression fracture October 27, 2025 10:49p m Unknown Resolved History of total vaginal hys terectomy (TVH) Christiano 13th, 2025 3:09am Unknown Resolved History of hemorrhoidectomy October 28, 2025 3:13am Unknown Resolved History of tonsillectomy October 28, 2025 3:09am Un known Resolved Altered mental status October 27, 2025 8:47pm Unkno wn Resolved Pacemaker October 27, 2025 10:49pm Unknown Resolved GERD (gastroesophageal reflu x disease) October 28, 2025 3:15am Unknown Resolved Glaucoma October 28, 2025 3:14am Unknown R esolved HTN (hypertension) October 28, 2025 3:15am Unknown Resolved Chronic sinusitis October 28, 2025 3:15am Unknown Resolved Medications Medication Status Dose Units Route Directions Qty Days Refills S tart Date Stop Date End Date Reason(s) Instructions Adherence Atenolol 25 MG tablet Discont inued 50 MG PO TWICE A DAY July 16, 2013 11:00p m Decem 2024 12:30 pm Digoxin 0.25 MG/5 ML solution Discont inued 0.125 MG PO DAILY July 16, 2013 11:00p m Augus t 2018 10:39 am Conjugated Estrogens (Premarin) 0.3 MG tablet Discont inued 0.3 MG PO DAILY 2015 12:00a m 2016 5:54p m Lorazepam 0.5 MG tablet Discont inued 0.5 MG PO Q8H as needed for Anxiety 10 0 2015 2:20pm 2016 5:53p m Sertraline 25 MG tablet Discont inued 25 MG PO DAILY 2015 12:00a m 2016 5:53p m Diazepam 5 MG tablet Discont inued 5 - 10 MG PO THREE TIMES A DAY as needed for Anxiety 20 0 2015 10:22p m 2016 5:53p m 1-2 TABLETS Ondansetron 4 MG tablet,disi ntegrating Discont inued 4 MG TL Q6H as needed for Nausea / Vomiting 10 2016 12:00a m Augus t 2018 10:38 am Clonazepam 0.5 MG tablet Discont inued 0.25 - 0.5 TAB PO TWICE A DAY as needed for Anxiety June 23, 2019 11:00p m [facility] wade 2024 12:30 pm Flecainide 50 MG tablet Discont inued 100 MG PO TWICE A DAY June 23, 2019 11:00p m [facility] wade 2024 12:30 pm Warfarin 1 MG tablet Discont inued 0.5 MG PO DAILY June 23, 2019 11:00p m [facility] wade 2024 12:30 pm Fluconazole (Diflucan) 150 MG tablet Discont inued 150 MG PO ONCE 1 0 May 26, 2020 11:00p m [facility] wade 2024 8:54p m Hydrocodone -Acetaminop hen ([place] 5-325 Tablet) 1 EACH tablet Discont inued 1 EACH PO Q6H as needed for Pain 15 0 May 27, 2020 [facility] wade 2024 12:30 pm Docusate Sodium 100 MG capsule Active 100 MG PO DAILY 30 0 May 26, 2020 11:00p m Complies with drug therapy Amoxicillin -Pot Clavulanate 1 TAB tablet Discont inued 1 EACH PO Q12H 14 0 May 26, 2020 11:00p m [facility] wade 2024 12:30 pm Promethazin e 25 MG tablet Discont inued 25 MG PO Q6H as needed for Nausea / Vomiting 15 0 May 26, 2020 11:00p m [facility] wade 2024 12:30 pm Amitriptyli ne 25 mg tablet Active 0 .ROUTE .COMPLEX 180 0 Dece er 2024 12:00a m Anxiety Anxiety disorder, unspecifie d 50mg by mouth at bedtime for 2 nights, then increase by 25mg every 3rd night as needed for anxiety symptoms. do not take more than 6 tablets at bedtime. Unknown Amlodipine 5 mg Tablet Active 5 MG PO DAILY 0 0 Dece mb er 2024 12:00a m Atrial fibrillati on Unspecifie d atrial fibrillati on Unknown Chlordiazep oxide Hcl 25 mg capsule Active 0 .ROUTE .COMPLEX 41 0 Decemb er 2024 12:00a m Anxiety Anxiety disorder, unspecifie d take 1 tab four times daily for 6 days, one tab three times daily for 5 days, one take two times daily for 4 days, one tab at bedtime for 4 days. Unknown Lidocaine 4 % Adhesive Patch,Medic ated Active 1 PATCH TOP DAILY 30 0 Decemb er 2024 12:00a m Closed compressio n fracture of L3 vertebra Unknown Hydroxyzine Pamoate 25 mg Capsule Active 50 MG PO Q4H as needed for anxiety 30 0 Decemb er 2024 12:00a m Anxiety Anxiety disorder, unspecifie d Unknown Lorazepam (Ativan) 1 mg tablet Active 2 MG PO FOUR TIMES DAILY 16 0 Decemb er 2024 12:00a m Anxiety Anxiety disorder, unspecifie d Unknown Chlordiazep oxide Hcl 25 mg capsule Active 0 .ROUTE .COMPLEX 51 0 Decemb er 2024 12:00a m Anxiety Anxiety disorder, unspecifie d 25mg po four times a day for 6 days, 25mg po three times a day for 5 days, 25mg po two times a day for 4 days, 25mg daily for 4 days Unknown Relevant Diagnostic Tests and/or Laboratory Data Laboratory Results Test Collection Date/Time Result Date/Time Result Interpretation Reference Range Result Comment Performing Site White Blood Count October 29, 2025 5:05am October 29, 2025 5:53am 5.3 10*3/uL 4.8-10.8 MAIN LAB [id number] [address] [facility] [id number] Red Blood Count October 29, 2025 5:05am October 29, 2025 5:53am 4.26 10*6/uL 4.20-5.40 MAIN LAB [id number] [address] [facility] [address] Hemoglob in October 29, 2025 5:05am October 29, 2025 5:53am 12.8 g/dL 12.0-16.0 MAIN LAB [id number] [address] [facility] [address] Hematocr it October 29, 2025 5:05am October 29, 2025 5:53am 39.9 % 37.0-47.0 MAIN LAB [id number] [address] [facility] [address] Mean Corpuscu lar Volume October 29, 2025 5:05am October 29, 2025 5:53am 93.7 fL 81.0-99.0 MAIN LAB [id number] [address] [facility] [address] Mean Corpuscu lar Hemoglob in October 29, 2025 5:05am October 29, 2025 5:53am 30.0 pg 27.0-31.0 MAIN LAB [id number] [address] [facility] [address] Mean Corpuscu lar Hemoglob in Concent October 29, 2025 5:05am October 29, 2025 5:53am 32.1 g/dL 32.0-36.0 MAIN LAB [id number] [address] [facility] [address] Red Cell Distribu tion Width October 29, 2025 5:05am October 29, 2025 5:53am 11.9 % below low threshold 12.0-15.0 MAIN LAB [id number] [address] [facility] [address] Platelet Count October 29, 2025 5:05am October 29, 2025 5:53am 192 10*3/uL 130-450 MAIN LAB [id number] [address] [facility] [address] Mean Platelet Volume October 29, 2025 5:05am October 29, 2025 5:53am 10.6 fL 7.9-10.8 MAIN LAB [id number] [address] [facility] [address] Neutroph ils # (Auto) October 29, 2025 5:05am October 29, 2025 5:53am 3.5 10*3/uL 1.5-6.6 MAIN LAB [id number] [address] [facility] [address] Lymphocy vaughn # (Auto) October 29, 2025 5:05am October 29, 2025 5:53am 1.1 10*3/uL below low threshold 1.5-3.5 MAIN LAB [id number] [address] [facility] [address] Monocyte s # (Auto) October 29, 2025 5:05am October 29, 2025 5:53am 0.5 10*3/uL 0.0-1.0 MAIN LAB [id number] [address] [facility] [address] Eosinoph ils # (Auto) October 29, 2025 5:05am October 29, 2025 5:53am 0.1 10*3/uL 0.0-0.7 MAIN LAB [id number] [address] [facility] [address] Basophil s # (Auto) October 29, 2025 5:05am October 29, 2025 5:53am 0.1 10*3/uL 0.0-0.1 MAIN LAB [id number] [address] [facility] [address] Nucleate d Red Blood Cells % October 29, 2025 5:05am October 29, 2025 5:53am 0.0 /100{WBC} MAIN LAB [id number] [address] [facility] [address] Nucleate d RBC Absolute Count (auto) October 29, 2025 5:05am October 29, 2025 5:53am 0.00 10*3/uL MAIN LAB [id number] [address] [facility] [address] Urine Color October 27, 2025 7:46pm October 27, 2025 8:29pm Yellow MAIN LAB [id number] [address] [facility] [address] Urine Clarity October 27, 2025 7:46pm October 27, 2025 8:29pm Clear CLEAR MAIN LAB [id number] [address] [facility] [address] Urine Leukocyt e Esterase October 27, 2025 7:46pm October 27, 2025 8:29pm Negative NEGATIVE MAIN LAB [id number] [address] [facility] [address] Urine Nitrite October 27, 2025 7:46pm October 27, 2025 8:29pm Negative NEGATIVE MAIN LAB [id number] [address] [facility] [address] Urine Urobilin ogen October 27, 2025 7:46pm October 27, 2025 8:29pm 0.2 (NORMAL) {EhrlichU} /dL NORMAL MAIN LAB [id number] [address] [facility] [address] Urine Protein October 27, 2025 7:46pm October 27, 2025 8:29pm Negative mg/dL NEGATIVE MAIN LAB [id number] [address] [facility] [address] Urine pH October 27, 2025 7:46pm October 27, 2025 8:29pm 7.0 ph 5.0-7.5 MAIN LAB [id number] [address] [facility] [address] Urine Occult Blood October 27, 2025 7:46pm October 27, 2025 8:29pm Small NEGATIVE MAIN LAB [id number] [address] [facility] [address] Urine Specific [place] October 27, 2025 7:46pm October 27, 2025 8:29pm 1.010 1.002-1.03 0 MAIN LAB [id number] [address] [facility] [address] Urine Ketones October 27, 2025 7:46pm October 27, 2025 8:29pm Negative mg/dL NEGATIVE MAIN LAB [id number] [address] [facility] [address] Urine Bilirubi n October 27, 2025 7:46pm October 27, 2025 8:29pm Negative NEGATIVE Bilirubin can be influenced by color interferen ce. Please correlate positive results with clinical presentati on MAIN LAB [id number] [address] [facility] [address] Urine Glucose (UA) October 27, 2025 7:46pm October 27, 2025 8:29pm Negative mg/dL NEGATIVE MAIN LAB [id number] [address] [facility] [address] Urine Microsco pic Review October 27, 2025 7:46pm October 27, 2025 8:29pm INDICATED MAIN LAB [id number] [address] [facility] [address] Urine WBC October 27, 2025 7:46pm October 27, 2025 8:46pm 0-3 [HPF] 0-5 MAIN LAB [id number] [address] [facility] [address] Urine RBC October 27, 2025 7:46pm October 27, 2025 8:46pm 0-5 [HPF] 0-5 MAIN LAB [id number] [address] [facility] [address] Urine Squamous Epitheli al Cells October 27, 2025 7:46pm October 27, 2025 8:46pm MANY Squamous above high threshold <= Few MAIN LAB [id number] [address] [facility] [address] Urine Bacteria October 27, 2025 7:46pm October 27, 2025 8:46pm None Seen [HPF] None Seen MAIN LAB [id number] [address] [facility] [address] Urine Culture Comments October 27, 2025 7:46pm October 27, 2025 8:46pm NOT INDICATED A culture is not indicated on urine samples contaminat ed with greater than a few Squamous Epithelial cells/HPF. A mid-stream clean catch urine for culture is charlie mcknight MAIN LAB [id number] [address] [facility] [address] Urine Fentanyl Screen October 27, 2025 7:46pm October 27, 2025 8:36pm Negative NEGATIVE [facility] LZI Fentanyl (Q) Enzyme Immunoassa y. RESULT INTERPRETA TION:This assay qualitativ luz maria detects norfentany l in urine which is the major metabolite of fentanyl. A result greater than or equal to 5 ng/mL is considered presumptiv luz maria positive for fentanyl exposure.C LINICAL SIGNIFICAN CE:Presump tive positive results indicate norfentany l concentrat ions above the assay cutoff. Due to possible cross-reac tivity and potential interferen ce, confirmato ry testing by a definitive method (e.g., LC-MS/MS) is recommende d for positive or unexpected findings.L IMITATIONS :This test is intended for qualitativ e screening and is unconfirme d. Concentrat ions below 5 ng/mL may not be reliably detected. False positives and false negatives are possible. Results are to be used for medical purposes only and can't be used for non-medica l or legal purposes. MAIN LAB [id number] [address] [facility] [address] Sodium Level October 29, 2025 5:05am October 29, 2025 6:01am 138 mmol/L 135-145 MAIN LAB [id number] [address] [facility] [address] Potassiu m Level October 29, 2025 5:05am October 29, 2025 6:01am 3.2 mmol/L below low threshold 3.5-4.5 As of May 2023 testing method has changed, this may include reference ranges. MAIN LAB [id number] [address] [facility] [address] Chloride Level October 29, 2025 5:05am October 29, 2025 6:01am 103 mmol/L 101-111 As of May 2023 testing method has changed, this may include reference ranges. MAIN LAB [id number] [address] [facility] [address] Carbon Dioxide Level October 29, 2025 5:05am October 29, 2025 6:01am 28 mmol/L 21-32 As of May 2023 testing method has changed, this may include reference ranges. MAIN LAB [id number] [address] [facility] [address] Anion Gap October 29, 2025 5:05am October 29, 2025 6:01am 7.0 6-13 MAIN LAB [id number] [address] [facility] [address] Blood Urea Nitrogen October 29, 2025 5:05am October 29, 2025 6:01am 9 mg/dL 6-20 As of May 2023 testing method has changed, this may include reference ranges. MAIN LAB [id number] [address] [facility] [address] Creatini ne October 29, 2025 5:05am October 29, 2025 6:01am 0.6 mg/dL 0.6-1.3 As of May 2023 testing method has changed, this may include reference ranges. MAIN LAB [id number] [address] [facility] [address] Estimate d GFR (MDRD) October 29, 2025 5:05am October 29, 2025 6:01am 97 >89 The IDPanelfly-trace able MDRD Study Equation has been validated extensivel y in and population s between the ages of 18 and 70 with impaired kidney function (eGFR < 60 mL/min/1.7 3m2) and has shown good performanc e for patients with all common causes of kidney disease. Although this equation has not been validated for patients older than 70, an MDRD-deriv ed eGFR may still be a useful tool for providers caring for patients older than 70.Referen mago: http://www .nkdep.nih .gov/lab-e valuation/ gfr/creati nine-stand ardization , last updated January 2012. MAIN LAB [id number] [address] [facility] [address] Glucose Level October 29, 2025 5:05am October 29, 2025 6:01am 89 mg/dL 74-104 As of May 2023 testing method has changed, this may include reference ranges. MAIN LAB [id number] [address] [facility] [address] Calcium Level October 29, 2025 5:05am October 29, 2025 6:01am 8.4 mg/dL below low threshold 8.5-10.3 As of May 2023 testing method has changed, this may include reference ranges. MAIN LAB [id number] [address] [facility] [address] Magnesiu m Level October 28, 2025 12:40am October 28, 2025 12:56am 2.1 mg/dL 1.7-2.3 As of May 2023 testing method has changed, this may include reference ranges. MAIN LAB [id number] [address] [facility] [address] Total Bilirubi n October 28, 2025 12:40am October 28, 2025 1:02am 0.4 mg/dL 0.2-1.0 As of May 2023 testing method has changed, this may include reference ranges. MAIN LAB [id number] [address] [facility] [address] Aspartat e Amino Transf (AST/SGO T) October 28, 2025 12:40am October 28, 2025 1:02am 17 [iU]/L 10-42 As of May 2023 testing method has changed, this may include reference ranges. MAIN LAB [id number] [address] [facility] [address] Alanine Aminotra nsferase (ALT/SGP T) October 28, 2025 12:40am October 28, 2025 1:02am 12 [iU]/L 10-60 As of May 2023 testing method has changed, this may include reference ranges. MAIN LAB [id number] [address] [facility] [address] Alkaline Phosphat ase October 28, 2025 12:40am October 28, 2025 1:02am 66 [iU]/L 42-121 As of May 2023 testing method has changed, this may include reference ranges. MAIN LAB [id number] [address] [facility] [address] Total Creatine Kinase October 27, 2025 8:21pm October 27, 2025 8:43pm 60 [iU]/L 30-223 As of May 2023 testing method has changed, this may include reference ranges. MAIN LAB [id number] [address] [facility] [address] Total Protein October 28, 2025 12:40am October 28, 2025 1:02am 6.1 g/dL below low threshold 6.4-8.9 As of May 2023 testing method has changed, this may include reference ranges. MAIN LAB [id number] [address] [facility] [address] Albumin October 28, 2025 12:40am October 28, 2025 1:02am 3.9 g/dL 3.2-5.5 As of May 2023 testing method has changed, this may include reference ranges. MAIN LAB [id number] [address] [facility] [address] Globulin October 28, 2025 12:40am October 28, 2025 1:02am 2.2 g/dL 2.1-4.2 MAIN LAB [id number] [address] [facility] [address] Albumin/ Globulin Ratio October 28, 2025 12:40am October 28, 2025 1:02am 1.8 1.0-2.2 MAIN LAB [id number] [address] [facility] [facility] [id number] Lipase October 27, 2025 8:21pm October 27, 2025 8:43pm 19 [iU]/L 11-82 As of May 2023 testing method has changed, this may include reference ranges. MAIN LAB [id number] [address] [facility] [address] Thyroid Stimulat ing Hormone (TSH) October 29, 2025 5:05am October 29, 2025 11:33am 1.75 u[iU]/mL 0.34-5.60 MAIN LAB [id number] [address] [facility] [address] Salicyla vaughn Level October 27, 2025 8:21pm October 27, 2025 8:45pm < 1.5 mg/dL As of May 2023 testing method has changed, this may include reference ranges.Leo icyalte Theraputic Range <30mg/dL MAIN LAB [id number] [address] [facility] [address] Acetamin ophen Level October 27, 2025 8:21pm October 27, 2025 8:43pm 11.9 ug/mL As of May 2023 testing method has changed, this may include reference ranges.Juice taminophen Therapeuti c concentrat ion 10-30 ug/mLHepat otoxicity concentrat ions - >150 ug/mL at 4hr after ingestion& gt;75 ug/mL at 8hr after ingestion> 40 ug/mL at 12hr after ingestion MAIN LAB [id number] [address] [facility] [address] Ethyl Alcohol Level October 27, 2025 8:21pm October 27, 2025 8:43pm < 10.0 mg/dL As of May 2023 testing method has changed, this may include reference ranges.Blo od Alcohol LevelsLeve l Sporadic Drinkers Chronic drinkers== = = =========1 00 mg/dL Legally intoxicate d* Minimal -5 50 mg/dL Alertness lost, Effort needed to becoming lethargic maintain emotional and motor [id number] -350 mg/dL Stupor to coma Drowsy and slow>500 mg/dL Possible Coma*The legal definition of intoxicati on varies. This assy is for medical decision making only. MAIN LAB [id number] [address] [facility] [address] Urine Cannabin oids Screen October 27, 2025 7:46pm October 27, 2025 8:34pm NEGATIVE NEGATIVE MAIN LAB [id number] [address] [facility] [address] Urine Phencycl idine Screen October 27, 2025 7:46pm October 27, 2025 8:34pm NEGATIVE NEGATIVE MAIN LAB [id number] [address] [facility] [address] Urine Cocaine Screen October 27, 2025 7:46pm October 27, 2025 8:34pm NEGATIVE NEGATIVE MAIN LAB [id number] [address] [facility] [address] Urine Methamph etamines Screen October 27, 2025 7:46pm October 27, 2025 8:34pm NEGATIVE NEGATIVE MAIN LAB [id number] [address] [facility] [address] Urine Opiates Screen October 27, 2025 7:46pm October 27, 2025 8:34pm NEGATIVE NEGATIVE MAIN LAB [id number] [address] [facility] [address] Urine Amphetam ine Screen October 27, 2025 7:46pm October 27, 2025 8:34pm NEGATIVE NEGATIVE MAIN LAB [id number] [address] [facility] [address] Urine Benzodia zepines Screen October 27, 2025 7:46pm October 27, 2025 8:34pm POSITIVE above high threshold NEGATIVE MAIN LAB [id number] [address] [facility] [address] Ur Tricycli c Antidepr essants Screen October 27, 2025 7:46pm October 27, 2025 8:34pm NEGATIVE NEGATIVE MAIN LAB [id number] [address] [facility] [address] Urine Methadon e Screen October 27, 2025 7:46pm October 27, 2025 8:34pm NEGATIVE NEGATIVE MAIN LAB [id number] [address] [facility] [address] Urine Barbitur ates Screen October 27, 2025 7:46pm October 27, 2025 8:34pm POSITIVE above high threshold NEGATIVE MAIN LAB [id number] [address] [facility] [address] Urine Oxycodon e Screen October 27, 2025 7:46pm October 27, 2025 8:34pm NEGATIVE NEGATIVE MAIN LAB [id number] [address] [facility] [address] Urine Buprenor phine Screen October 27, 2025 7:46pm October 27, 2025 8:34pm NEGATIVE NEGATIVE MAIN LAB [id number] [address] [facility] [address] Urine Drug Screen Comment October 27, 2025 7:46pm October 27, 2025 8:34pm CUTOFF CONC BELOW: [facility] uses the PROFILE-V [employer] Drugs of Abuse Test System. It detects drug classes at the following cutoff concentrat ions:AMP Amphetamin e (d-Ampheta mine) 500 ng/mLBAR Barbiturat es (Butalbita l) 200 ng/mLBZO Benzodiaze pines (Nordiazep am) 150 ng/mLBUP Buprenorph ine (Buprenorp chapis) 10 ng/mLCOC Cocaine (Benzoylec gonine) 150 ng/mLMAMP Methamphet amine (d-Methamp hetamine) 500 ng/mLMTD Methadone (Methadone ) 200 ng/mLOPI Opiates (Morphine) 100 ng/mLOXY Oxycodone (Oxycodone ) 100 ng/mLPCP Phencyclid ine (Phencycli dine) 25 ng/mLBUP Buprenorph ine (Buprenorp chapis) 10 ng/mLTHC Cannabinoi ds (11-nor-9- carboxy-9- THC) 50 ng/mLTCA Tricyclic Antidepres sants (Desiprami ne) 300 ng/mLAll drug screen results are unconfirme d. Results are to be used for medical (i.e. treatment) purposes only. Unconfirme d screening results must not be used for non-medica l purposes (e.g., employment testing, legal testing). MAIN LAB [id number] [address] [facility] [address] Vital Signs Vital Reading Result Reference Range Collection Date/Time Height 65 [in_i] October 27, 2025 10:25pm Weight 61.50 kg October 27, 2025 10:25pm Body Temperature 36.5 Shantel 36.5-37.9 October 292024 3:48pm Heart Rate 64 /min 60-100 October 29, 2025 3:48pm Respiratory rate 16 /min 12-24 October 292024 3:48pm Oxygen saturation by Pulse oximetry 97 % 92-100 October 29, 2025 3:48pm BP Systolic 153 mm[Hg] 90-130 October 29, 2025 3:48pm BP Diastolic 85 mm[Hg] 60-90 October 29, 2025 3:48pm BMI (Body Mass Index) 22.5 kg/m2 [facility] Advance Directives Advance Directive Response Recorded Date/ Time Advance Directives on file? Yes Dece er 2024 10:25pm Advance Directives No October 20, 2025 11:07pm Advance Directives Information Provided No October 20, 2025 11:07pm Insurance Providers Guarantor Jose MEDRANO Address [address] [address] Contact Info. Home Phone: Coverage Status Update:2025 Payer Group Member ID Coverage Type Subscriber Relationship to Subscriber Effective Date Expiration Date Medicare A and B [id number] null Jose MEDRANO Id: [id number] [address] [address] Home Phone: Email: [email or web address] Self [address] [facility] INDIVIDUAL Id: [id number] null Jose MEDRANO Id: [id number] [address] [address] Home Phone: Email: [email or web address] Encounter Location(s) Arrival/Admit Date Discharge/Departure Date Discharge/Departure Disposition Provider(s) Departed Clinical -Emergency Medical Services October 19, 2025 11:33am October 19, 2025 11:34am Discharged/transfer red to a [facility] for inpatient EMS DOC Departed Clinical -Emergency Medical Services October 27, 2025 6:03pm October 27, 2025 11:59pm Discharged to home care or self care (routine discharge) EMS DOC Discharged Inpatient -Medical / Surgical Pod 2 October 28, 2025 5:28pm October 29, 2025 3:57pm Discharged to home care or self care (routine discharge) ABELINO De Luna Recent Diagnosis Onset Date Admit Date Closed compression fracture of L3 vertebra Unkno wn October 28, 2025 5:28pm Atrial fibrillation Unknown October 5:28pm Altered mental status Unknown October 162024 5:28pm Polypharmacy Unknown October 28, 2 025 5:28pm Functional Status Observation Response Date Recorded Activity Walks occasionally October 8:00am Home Mobility Equipment Cane October 27, 2025 10:25pm Mental Status Observation Response Date Recorded Neurological WDL Yes October 27, 2025 6:43pm Oriented To Person October 28, 2 025 8:[address]am Place October 28, 2 025 8:00am Time October 28, 2 025 8:00am Situation October 28, 2 025 8:00am Cognitive/Mental Status Assessments Assessments Diagnosis Onset Date Resolution Status Admit Date Closed compression fracture of L3 vertebra acute October 28, 2 025 5:28pm Atrial fibrillation chronic Decem 2024 5:28pm Altered mental status resolved Dec emb2024 5:28pm Polypharmacy resolved October 5:28pm Plan of Treatment Future Tests Future scheduled test information is unavailable Pending Tests Pending diagnostic test information is unavailable Future Visits Future appointment information is unavailable Future Procedures Procedure Name Ordered Date Scheduled Date Discharge October 29, 2025 12:26pm Dece mber 2024 12:00am Future Medications Future medication information is unavailable Patient Instructions Instruction Admit Date Understanding Anxiety Disorders October 28, 2025 5:28pm Goals Acute Goals Author Authored Date Risk for activity intol will decrease Encourage mobilization to extent of ability Provide rest periods as needed Provide assistance with activity as needed Perform sitting up in chair during meals and as tolerated Provide assistive devices as needed [facility] October 28, 2025 7:03am No complication r/t bowel mo tility Assess baseline bowel pattern on admission Implement Bowel Care Protocol as needed [facility] October 28, 2025 7:03am Knowledge of testing will im prove Explain information regarding tests and procedures as needed [facility] October 28, 2025 7:03am Knowledge of disease will im prove Discuss information regarding disease process or condition Discuss information regarding pain and pain management Provide tailored teaching specific to age, educational level, and preferred method [facility] October 28, 2025 7:03am Knowledge of safety will imp rove Discuss fall prevention measures Instruct safe transferring technique as needed [facility] October 28, 2025 7:03am Knowledge of therapies will improve Teach information regarding medications Explain prescribed diet as needed [facility] October 29, 2025 1:50pm Balanced Intake and Output w ill improve Implement fluid volume management Monitor compliance with therapeutic intake of liquids Educate patient on rationale for monitoring I/O as ordered Record intravenous fluids per policy [facility] October 28, 2025 7:03am Compliance with medication w ill improve Encourage compliance with prescribed medication regimen [facility] October 28, 2025 7:03am Ability to manage health suzanna l improve Encourage self-management skills Collaborate with care management as needed Obtain advance directives as needed [facility] October 28, 2025 7:03am Compliance with medication w ill improve Encourage compliance with prescribed medication regimen [facility] October 28, 2025 7:04am Risk for meds side effects w ill decrease Observe medication effects after medication administration and per protocol [facility] October 28, 2025 7:04am Nutritional status will impr ove Perform Malnutrition Screening on admission Monitor nutritional intake Provide assistance with feeding as needed [facility] October 29, 2025 1:50pm Will remain free from infect ion Perform infection prevention measures continuously Demonstrate standard precautions continuously Evaluate removal of potential routes of infection, such as IV, intra-arterial or urinary catheters Assess signs and symptoms of infection as needed and every shift Perform Sepsis Screening every shift and on admission Assess delirium screening with the Confusion Assessment Method (CAM) as needed and every 4 hours [facility] October 28, 2025 1:39pm Respiratory status will impr ove Monitor pulmonary status Provide oxygen therapy per protocol Encourage coughing and deep breathing Encourage incentive spirometry usage as ordered Administer nebulizer treatments as ordered [facility] October 28, 2025 7:04am Maintaining a clear airway w ill improve Coordinate respiratory therapy on admission Assess pulmonary status on admission Monitor amount and/or characteristics of sputum Provide airway suctioning as tolerated and as needed Encourage incentive spirometry usage Encourage coughing and deep breathing [facility] October 28, 2025 7:04am Adequate ventilation will im prove Manage oxygen therapy per order and per protocol Monitor diagnostic test results Monitor invasive mechanical ventilation as ordered Monitor BiPap ventilation as ordered Monitor continuous positive airway pressure (CPAP) per order and per protocol Provide positioning for optimal respiratory function and comfort as tolerated Implement actions to maintain patent airway [facility] October 28, 2025 7:04am Complications will be avoide d /minimized Monitor level of consciousness every shift Monitor signs and symptoms of fluid volume excess Perform respiratory hygiene/cough etiquette measures continuously Provide oral hygiene per protocol, as needed, every morning and every evening Maintain elevation of head of bed per protocol [facility] October 28, 2025 7:04am Ability to be injury free wi ll improve Provide a safe environment Provide comfort and safety rounds of patient [facility] October 28, 2025 7:04am Ability to remain fall free will improve Perform a [facility] Fall Risk Assessment on patient every shift Implement fall prevention measures per protocol [facility] October 28, 2025 1:39pm Participation in self-care w ill improve Allow adequate time for self-care Encourage self-care activities Provide items and equipment for self-care Assess ability to perform activities of daily living [facility] October 28, 2025 7:04am Pain level will decrease Assess pain status as needed and every shift Assess non-verbal cues of discomfort, such as restlessness, muscle tension, or altered vital signs Azizaswetha Nino October 29, 2025 1:50pm A pain control plan will be supported Explore factors that precipitate, worsen or relieve pain or discomfort Implement pain control measures Implement non-pharmacologic comfort measures Assess effects of pain control measures Provide administration of medications prior to painful activities Assess medication effects per policy [facility] October 28, 2025 7:04am Risk for impaired skin will decrease Perform Baltazar Scale Assessment on patient every shift Monitor skin integrity, appearance and/or temperature Provide skin care Provide repositioning [facility] October 28, 2025 7:04am Effective tissue perfusion w ill increase Assess risk for venous thromboembolism (VTE) Encourage ambulation Assessment of cardiac status for tissue perfusion adequacy will be be supported [facility] October 28, 2025 7:04am Preferences Type Detail Treatment Intervention Resuscitation Sta tus: Do Not Attempt Resuscitat
[2025-11-01 14:52] VITALS: PULSE 60
--- NOTE | 2025-11-01 18:00 | ED.RECABL ---
HPI - Recheck/Abnormal Lab/Rx General Chief Complaint: Recheck/Abnormal Lab/Rx Stated Complaint: Reaction to Medication Time Seen by Provider: 11/01/25 17:52 Source: EMS Mode of arrival: EMS History of Present Illness HPI narrative: Patient is a 79-year-old female history of atrial fibrillation on Xarelto ongoing anxiety benzodiazepine dependence presenting today with a reaction from Librium. She has been taking 4-6 mg lorazepam daily. They tried to take her into a detox facility that was private pay where they gave her phenobarbital. He did not respond well and left they left in the middle of the night. They were then seen at [facility] emergency department where she was placed on a Librium taper of 25 mg. She took her 1st dose yesterday and slept all day. She was supposed to take it Q 6 hours but they did not give her anymore after the 1st one. They feel like she is having some sort of reaction to this medication and are quite concerned hit they have an appointment with her primary care provider on Thursday. She was also started on amitriptyline and hydroxyzine as well. She does not want placement in a mental health facility which is also offered her. She continues to be very anxious. Related Data Home Medications ?Medication ?Instructions ?Recorded ?Confirmed amlodipine 5 mg tablet 5 mg PO DAILY 10/05/23 02/28/24 rivaroxaban 2.5 mg tablet (Xarelto) 5 mg PO DAILY 10/05/23 02/28/24 Previous Rx's ?Medication ?Instructions ?Recorded oxycodone-acetaminophen 5 mg-325 1 tab PO Q8H PRN pain #14 tabs 10/05/23 mg tablet clonazepam 0.5 mg tablet 0.5 mg PO TID #12 tabs 10/19/25 chlordiazepoxide HCl 5 mg capsule 10 mg (2 x 5 mg) PO BID #30 caps 11/01/25 Allergies Allergy/AdvReac Type Severity Reaction Status Date / Time meperidine (From DEMEROL) Allergy Unknown Verified 10/19/25 12:29 morphine AdvReac Hallucinati Verified 10/19/25 12:29 ng Patient History Surgical History Status post myomectomy Status post hernia repair Status post hysterectomy Exam Initial Vital Signs Initial Vital Signs: Vital Signs Pulse Rate 60 11/01/25 14:52 Oxygen Delivery Method Room Air 11/01/25 14:52 GENERAL: Alert pleasant anxious 79-year-old female CARDIOVASCULAR: peripheral pulses in tact, cap refill <2 sec RESPIRATORY: No respiratory distress, speaks in full sentences without difficulty EXTREMITIES: Normal range of motion, no clubbing or edema. Neurovascularly intact NEUROLOGICAL: Cranial nerves II through XII grossly intact. Normal gait and speech. SKIN: Warm, dry, no petechiae, no rashes or lesions. Course Orders Ordered: ED Orders 11/01/25 14:56 Consult to [facility] - Forming Machine Operator Stat Vital Signs Vital signs: Vital Signs - 8 hr 11/01/25 14:52 11/01/25 18:30 Pulse Rate 60 61 Respiratory Rate 16 Blood Pressure 183/99 H Pulse Oximetry 97 Oxygen Delivery Method Room Air Room Air MDM - Recheck/Abnormal Lab/Rx Lab Data Labs: Urine Dip Bedside Urine Glucose Negative Bedside Urine Bilirubin - Negative Bedside Urine Ketone - Negative Urine Specific [place] 1.005 Bedside Urine Occult Blood +/- Bedside Urine pH 7.0 Bedside Urine Protein - Negative Bedside Urine Urobilinogen - Negative Bedside Urine Nitrite - Negative Bedside Urine Leukocytes - Negative Esterase [facility] Narrative Medical decision making narrative: Patient 79-year-old female with benzodiazepine dependence and severe anxiety. [facility] health facility for detox but does not want that. But she does want to be monitored for her tapering. At this time she has a appointment with her primary care provider. I offered a smaller dose of Librium so that she could take that instead. And taper that. Both she and has been agree to it. Also recommended that if they can not get this particular dose filled that she could cut the 25 mg tablet in half and take it twice a day or once a day. I suspect the 25 mg was too high of a dose for her. You will ultimately need to be on amitriptyline and appropriate anti anxiety medication. She does not meet involuntary criteria at this time. Discharge Plan Departure Patient Disposition: Home Clinical Impression: Benzodiazepine dependence, Anxiety Medication adverse effect Qualifiers: Encounter type: initial encounter Qualified Code(s): T50.905A - Adverse effect of unspecified drugs, medicaments and biological substances, initial encounter Activity Restrictions/Additional Instructions: *You have been diagnosed with anxiety benzodiazepine dependence *What to do: *Continue to take medications as directed Librium 10 mg twice a day for 5 days (if 10 mg is still too much you may change it to 5 mg twice daily), 5 mg twice a day for 3 days, 5 mg once a day for 3 days *Follow up with your primary care provider in 2-3 days or call [phone] *Return to ER if you should have [or] any new, worsening or concerning symptoms Prescriptions: New chlordiazepoxide HCl 5 mg capsule 10 mg PO BID Qty: 30 0RF Rx Instructions: 10 mg twice a day for 5 days, 5 mg twice a day for 4 days the 5 mg once a day for 3 days then stop No Action clonazepam 0.5 mg tablet 0.5 mg PO TID Qty: 12 0RF amlodipine 5 mg tablet 5 mg PO DAILY Xarelto 2.5 mg Tablet 5 mg PO DAILY oxycodone-acetaminophen 5-325 mg tablet 1 tab PO Q8H PRN (Reason: pain) Qty: 14 0RF Referrals: Steff Dove I PAKellyC [Primary Care Provider, Medical] Stand Alone Forms: Patient Portal/API
[2025-11-01 18:30] VITALS: BP 183/99; PULSE 61; RESP 16; O2SAT 97
== END 2025-11-01 18:34 | disposition home or self-care (01) ==
PROVIDERS: Emergency Provider Emergency Medicine; PCP Physician Assistant
DX: F41.9 Anxiety disorder, unspecified (principal); T42.4X5A Adverse effect of benzodiazepines, initial encounter
CPT/HCPCS: 81003; 99281; 99283